=== PATIENT | female | born 1965 ===

== ENCOUNTER 2018-06-19 20:11 | Emergency (ER) | payer OTHER ==
[~2018-06-19] VITALS: Ht 160 cm; Wt 74.8 kg
[2018-06-19] MEDS ORDERED: TOPROL XL50 M1 (20:46)
[2018-06-19] MEDS ORDERED: ALTACE10 MG (20:46)
[2018-06-19] MEDS ORDERED: FARXIGA10 MG (20:47)
[2018-06-19] MEDS ORDERED: ULTRACET PO (23:29)
[2018-06-19] MEDS ORDERED: INTESTINEX680 M1 PO (23:29)
[2018-06-19] MEDS ORDERED: CLINDAMYCIN HC150 MG PO (23:29)
== END 2018-06-20 00:20 ==
LOC: ER 20:11
DX: L03.011 Cellulitis of right finger (principal)

== ENCOUNTER 2021-09-27 10:56 | Outpatient (CLI) | payer OTHER ==
[~2021-09-27 10:56] MED LIST: ALTACE10 MG; CLINDAMYCIN HC150 MG PO; FARXIGA10 MG; INTESTINEX680 M1 PO; TOPROL XL50 M1; ULTRACET PO
== END 2021-09-27 11:07 | disposition home or self-care (01) ==
LOC: SONOGRAMA 10:56
PROVIDERS: ATTEND Podiatrist Foot Surgery
DX: M72.2 Plantar fascial fibromatosis (principal)